=== PATIENT | male | born 1995 | race Caucasian/White ===

== ENCOUNTER 2022-09-03 23:48 | Emergency (ER) | payer OTHER ==
[~2022-09-03] VITALS: Ht 185.4 cm; Wt 98.0 kg
[2022-09-04] MEDS ORDERED: DICLOFENAC35 MG PO (00:01)
[2022-09-04 00:34] VITALS: BP 128/97
== END 2022-09-04 00:32 | disposition home or self-care (01) ==
LOC: ED 23:48
DX: S01.511A Laceration without foreign body of lip, initial encounter (principal); W01.198A Fall on same level from slipping, tripping and stumbling with subsequent striking against other object, initial encounter; Z79.899 Other long term (current) drug therapy
CPT/HCPCS: 12011; 99282-25